=== PATIENT | male | born 1995 | race Hispanic/Latino ===

== ENCOUNTER 2016-10-29 01:43 | Emergency (ER) | payer OTHER ==
[~2016-10-29] VITALS: Ht 170.2 cm; Wt 77.1 kg
[2016-10-29] MEDS ORDERED: PENI250T57 PO (08:03)
[2016-10-29] MEDS ORDERED: OXYCODONE/APAP 5MG/325MG(BULK) 1 TAB TAB PO ONE (08:15)
[2016-10-29] MEDS ORDERED: PERCOCET 5MG/325MG TAB PO ONE ×2 (08:15)
[2016-10-29 08:32] VITALS: BP 118/69
== END 2016-10-29 08:34 | disposition home or self-care (01) ==
LOC: M ED 02:28
DX: K08.89 Other specified disorders of teeth and supporting structures (principal)

== ENCOUNTER 2016-11-09 10:09 | Emergency (ER) | payer OTHER ==
[~2016-11-09] VITALS: Ht 170.2 cm; Wt 77.1 kg
[2016-11-09 10:09] VITALS: BP 137/69
[~2016-11-09 10:09] MED LIST: PENI250T57 PO
[2016-11-09] MEDS ORDERED: NAPR500T2 PO (10:53)
[2016-11-09] MEDS ORDERED: PERCOCET 5MG/325MG TAB PO ONE (11:00)
[2016-11-09] MEDS ORDERED: CLINDAMYCIN 150 MG CAP PO ONE (11:00)
[2016-11-09] MEDS ORDERED: diphenhydrAMINE 50 MG CAP PO ONE (11:00)
[2016-11-09] MEDS ORDERED: SILVER SULFADIAZINE 1% CR 50 GM JAR TOP ONE (11:00)
[2016-11-09] MEDS ORDERED: BENA25TA9 PO (11:02)
[2016-11-09] MEDS ORDERED: CLIN1CAP5 PO (11:03)
[2016-11-09] MEDS ORDERED: SILV-4 TOP (11:06)
== END 2016-11-09 11:24 | disposition home or self-care (01) ==
LOC: M ED 10:36
DX: L08.9 Local infection of the skin and subcutaneous tissue, unspecified (principal); L23.5 Allergic contact dermatitis due to other chemical products; L74.0 Miliaria rubra

== ENCOUNTER 2017-01-30 23:22 | Emergency (ER) | payer OTHER ==
[~2017-01-30] VITALS: Ht 170.2 cm; Wt 81.8 kg
[~2017-01-30 23:22] MED LIST changes: +BENA25TA9 PO; +CLIN1CAP5 PO; +NAPR500T2 PO; +SILV-4 TOP
[2017-01-30] MEDS ORDERED: methylPREDNISolone INJ 125 MG/2 ML VIAL (J2930) IV ONE (23:45)
[2017-01-30] MEDS ORDERED: diphenhydrAMINE INJ 50MG/ML VIAL (J1200) IV ONE (23:45)
[2017-01-30] MEDS ORDERED: FAMOTIDINE IV BAG 20 MG in APPROPRIATE DILUENT 1 EA IV ONE (23:45)
[2017-01-31 00:47] LABS: ANION GAP 6 MEQ/L (8-16); BLOOD UREA NITROGEN 18 MG/DL (7-18); CARBON DIOXIDE LEVEL 30 MEQ/L (21-32); CHLORIDE LEVEL 106 MEQ/L (98-107); CREATININE FOR GFR 0.97 MG/DL (0.70-1.30); GLOMERULAR FILTRATION RATE > 60.0 (>60); GLUCOSE, FASTING 102 MG/DL (70-105); SODIUM LEVEL 142 MEQ/L (136-145)
[2017-01-31] MEDS ORDERED: PRED20TA PO (01:56)
[2017-01-31 01:58] VITALS: BP 132/78
[2017-01-31] MEDS ORDERED: DIPH50TA3 PO (02:00)
== END 2017-01-31 02:18 | disposition home or self-care (01) ==
LOC: M ED 01-31 01:06
DX: T78.40XA Allergy, unspecified, initial encounter (principal); X58.XXXA Exposure to other specified factors, initial encounter; Y92.9 Unspecified place or not applicable; Y93.9 Activity, unspecified; Y99.9 Unspecified external cause status
CPT/HCPCS: 80048; 93041; 94760; 96374; 96375; 99284; J1200; J2930

== ENCOUNTER 2018-03-15 23:12 | Emergency (ER) | payer OTHER ==
[2018-03-16 02:42] LABS: BASO % 0.2 % (0.0-1.0); EOS # 0.2 10^3/uL (0.0-0.50); EOS % 2.5 % (0.0-3.0); HEMATOCRIT 45.7 % (42.0-52.0); HEMOGLOBIN 16.1 g/dl (13.5-17.5); IMMATURE GRANULOCYTE % 0.2 % (0-3.0); LYMPH # 2.2 10^3/uL (1.5-6.5); LYMPH % 26.5 % (24.0-44.0); MEAN CORPUSCULAR HEMOGLOBIN 31.5 pg (27.0-33.0); MEAN CORPUSCULAR HGB CONC 35.2 g/dl (32.0-36.5); MEAN CORPUSCULAR VOLUME 89.4 fl (80.0-96.0); MONO # 0.6 10^3/uL (0.0-0.8); MONO % 7.6 % (0.0-5.0); NEUTROPHILS # 5.3 10^3/uL (1.8-7.7); PLATELET COUNT, AUTOMATED 272 10^3/uL (150-450); RED BLOOD COUNT 5.11 10^6/uL (4.30-6.10); RED CELL DISTRIBUTION WIDTH 12.4 % (11.5-14.5); WHITE BLOOD COUNT 8.4 10^3/uL (4.0-10.0)
[2018-03-16 02:54] LABS: ALBUMIN 4.4 GM/DL (3.2-5.2); ALBUMIN/GLOBULIN RATIO 1.33 (1.00-1.93); ALKALINE PHOSPHATASE 121 U/L (45-117); ALT/SGPT 47 U/L (12-78); ANION GAP 7 MEQ/L (8-16); AST/SGOT 36 U/L (7-37); BILIRUBIN,DIRECT 0.1 MG/DL (0.0-0.2); BILIRUBIN,TOTAL 0.5 MG/DL (0.2-1.0); BLOOD UREA NITROGEN 16 MG/DL (7-18); CALCIUM LEVEL 9.2 MG/DL (8.5-10.1); CARBON DIOXIDE LEVEL 30 MEQ/L (21-32); CHLORIDE LEVEL 105 MEQ/L (98-107); CREATININE FOR GFR 0.99 MG/DL (0.70-1.30); GLOMERULAR FILTRATION RATE > 60.0 (>60); GLUCOSE, FASTING 92 MG/DL (70-100); POTASSIUM SERUM 4.1 MEQ/L (3.5-5.1); SODIUM LEVEL 142 MEQ/L (136-145); TOTAL PROTEIN 7.7 GM/DL (6.4-8.2)
[2018-03-16 03:06] LABS: INR 0.92; PARTIAL THROMBOPLASTIN TIME 29.3 SECONDS (25.4-37.6); PROTHROMBIN TIME 12.4 SECONDS (12.1-14.4)
== END 2018-03-16 03:28 | disposition home or self-care (01) ==
LOC: M ED 23:12
DX: K52.9 Noninfective gastroenteritis and colitis, unspecified (principal); Z72.0 Tobacco use
CPT/HCPCS: 80076